=== PATIENT | male | born 1955 | race Caucasian/White ===

== ENCOUNTER 2016-10-14 13:21 | Emergency (ER) | payer OTHER ==
[~2016-10-14] VITALS: Ht 167.6 cm; Wt 94.0 kg
[2016-10-14 13:25] VITALS: Ht 167.6 cm; Wt 94.0 kg
--- NOTE | 2016-10-14 14:00 | RADRPT ---
PROCEDURE: CT Brain without contrast. CLINICAL INDICATION: Altered Mental Status TECHNIQUE: A CT of the brain was performed on a [employer] [facility] 64-slice CT scanner utilizing axial imaging from the skull base through the vertex without IV contrast. Multiplanar reformatted images were made. Images were reviewed on a PACS workstation. The CTDIvol is 41.4 mGy and the DLP is 720 mGycm. COMPARISON: None FINDINGS: There is no intracranial hemorrhage, mass effect, or midline shift. No extra-axial fluid collection is seen. The ventricles and sulci are normal in size and configuration. The density of the brain is normal, and the mott white matter differentiation appears well-preserved. The visualized paranasal sinuses and osseous structures are grossly unremarkable. IMPRESSION: 1. No evidence of acute intracranial pathology. 2. The brain is normal in appearance. Physician Ashish Date Time Electronically viewed and signed by Physician Ashish on 10/14/2016 13:59 ML/
[2016-10-14 14:25] LABS: ADD SCAN DIFF NO
[2016-10-14 14:33] LABS: BASOPHILS % 0.2 % (0.0-2.0); EOSINOPHILS % 0.2 % (0.0-7.0); HEMATOCRIT 45.6 % (42.0-52.0); LYMPHOCYTES # 0.8 10^3/ul (0.8-2.9); LYMPHOCYTES % 6.5 % (15.0-51.0); MEAN CORPUSCULAR HEMOGLOBIN 29.6 pg (29.0-33.0); MEAN CORPUSCULAR HGB CONC 32.9 g/dl (32.0-37.0); MEAN CORPUSCULAR VOLUME 89.9 fl (82.0-101.0); MEAN PLATELET VOLUME 9.2 fl (7.4-10.4); MONOCYTE # 0.7 10^3/ul (0.3-0.9); MONOCYTES % 5.7 % (0.0-11.0); NEUTROPHILS % 87.2 % (39.0-77.0); PLATELET COUNT 258 10^3/UL (140-415); RED BLOOD COUNT 5.07 10^6/ul (4.70-6.10); RED CELL DISTRIBUTION WIDTH 13.7 % (11.5-14.5); WHITE BLOOD COUNT 12.6 10^3/ul (4.8-10.8)
[2016-10-14 14:43] LABS: ADD UMIC NO; URINE BILIRUBIN (Dip) NEGATIVE (NEGATIVE); URINE BLOOD (Dip) NEGATIVE (NEGATIVE); URINE COLOR LT. YELLOW (YELLOW); URINE GLUCOSE (Dip) NEGATIVE (NEGATIVE); URINE KETONES (Dip) NEGATIVE (NEGATIVE); URINE LEUKOCYTE ESTERASE (Dip) NEGATIVE (NEGATIVE); URINE NITRITE (Dip) NEGATIVE (NEGATIVE); URINE TOTAL PROTEIN (Dip) NEGATIVE (NEGATIVE); URINE UROBILINOGEN (Dip) 0.2 E.U./dL (0.1-1.0)
[2016-10-14 14:48] LABS: CHLORIDE 104 mmol/L (97-110); POTASSIUM 3.5 mmol/L (3.5-5.1); SODIUM 142 mmol/L (135-144)
[2016-10-14 14:50] LABS: ANION GAP 16 (8-16); BILIRUBIN,INDIRECT 0.3 mg/dl (0-1.1); BILIRUBIN,TOTAL 0.3 mg/dl (0.2-1.3); CARBON DIOXIDE 26 mmol/L (21-31); CREATININE 0.91 mg/dl (0.61-1.24)
[2016-10-14 14:51] LABS: ALANINE AMINOTRANSFERASE 35 IU/L (13-69); ALBUMIN/GLOBULIN RATIO 1.14; ALKALINE PHOSPHATASE 89 IU/L (42-121); ASPARTATE AMINO TRANSFERASE 17 IU/L (15-46); BLOOD UREA NITROGEN 28 mg/dl (7-20); CALCIUM 9.2 mg/dl (8.4-10.2); GLUCOSE 102 mg/dl (70-220); SALICYLATE < 1.0 mg/dl (5.0-30.0); TOTAL PROTEIN 7.5 g/dl (6.1-8.1)
[2016-10-14 14:52] LABS: ACETAMINOPHEN < 10.0 ug/ml (10.0-30.0); ETHANOL < 10.0 mg/dl
[2016-10-14 14:57] LABS: BENZODIAZEPINES Negative (NEGATIVE)
--- NOTE | 2016-10-14 15:00 | ERD ---
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 The patient took his blood pressure medicines this morning and then says "I forgot everything". He said that it happened 30 minutes ago. 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 Upon review of old medical records this is the patient's first visit to the emergency department. He feels like he is back to his normal at this time. ROS All systems reviewed and are negative except as per history of present illness. Medications Home Meds Reported Medications Amiloride/HCTZ (Moduretic) 5-50 Mg Tab, 1 TAB PO DAILY, TAB PT GETS DRUG FROM [facility] 10/14/16 Metoprolol Tartrate* (Lopressor*) 25 Mg Tab, 12.5 MG PO BID, #60 TAB 10/14/16 Tamsulosin Hcl* (Tamsulosin Hcl*) 0.4 Mg Cap.er.24h, 0.4 MG PO HS, CAP 10/14/16 Finasteride* (Finasteride*) 5 Mg Tablet, 5 MG PO DAILY, TAB 10/14/16 Apixaban* (Eliquis*) 5 Mg Tablet, 5 MG PO BID, TAB 10/14/16 Amlodipine Besylate* (Norvasc*) 5 Mg Tablet, 5 MG PO DAILY, TAB 10/14/16 Lisinopril* (Lisinopril*) 40 Mg Tablet, 40 MG PO DAILY, #30 TAB 10/14/16 Allergies Allergies: Coded Allergies: No Known Allergy (Unverified , 10/14/16) PMhx/Soc Positive for coronary disease and hypertension FmHx Family History: diabetes Physical Exam Vitals Vital Signs Date Time Temp Pulse Resp B/P Pulse Ox O2 Delivery O2 Flow Rate FiO2 10/14/16 15:06 88 16 144/96 100 Room Air 10/14/16 13:25 97.7 90 18 161/91 97 Physical Exam Const: No acute distress Head: Atraumatic Eyes: Normal Conjunctiva ENT: Normal External Ears, Nose and Mouth. Neck: Full range of motion..~ No meningismus. Resp: Clear to auscultation bilaterally Cardio: Regular rate and rhythm, no murmurs Abd: Soft, non tender, non distended. Normal bowel sounds Skin: No petechiae or rashes Back: No midline or flank tenderness Ext: No cyanosis, or edema Neur: Awake and alert, no slurred speech, strength is 5 out of 5 in all 4 extremities, gait is normal Psych: Normal Mood and Affect Result Diagram: 10/14/16 1420 10/14/16 1420 Results 24 hrs Laboratory Tests Test 10/14/16 14:20 White Blood Count 12.610^3/ul Red Blood Count 5.0710^6/ul Hemoglobin 15.0g/dl Hematocrit 45.6% Mean Corpuscular Volume 89.9fl Mean Corpuscular Hemoglobin 29.6pg Mean Corpuscular Hemoglobin Concent 32.9g/dl Red Cell Distribution Width 13.7% Platelet Count 02536^3/UL Mean Platelet Volume 9.2fl Neutrophils % 87.2% Lymphocytes % 6.5% Monocytes % 5.7% Eosinophils % 0.2% Basophils % 0.2% Nucleated Red Blood Cells % 0.0/100WBC Neutrophils # 11.010^3/ul Lymphocytes # 0.810^3/ul Monocytes # 0.710^3/ul Eosinophils # 0.010^3/ul Basophils # 0.010^3/ul Nucleated Red Blood Cells # 0.010^3/ul Urine Color LT. YELLOW Urine Clarity CLEAR Urine pH 5.5 Urine Specific [place] 1.025 Urine Ketones NEGATIVE Urine Nitrite NEGATIVE Urine Bilirubin NEGATIVE Urine Urobilinogen 0.2 E.U./dL Urine Leukocyte Esterase NEGATIVE Urine Hemoglobin NEGATIVE Urine Glucose NEGATIVE% Urine Total Protein NEGATIVE Sodium Level 142mmol/L Potassium Level 3.5mmol/L Chloride Level 104mmol/L Carbon Dioxide Level 26mmol/L Anion Gap 16 Blood Urea Nitrogen 28mg/dl Creatinine 0.91mg/dl Glucose Level 102mg/dl Calcium Level 9.2mg/dl Total Bilirubin 0.3mg/dl Direct Bilirubin 0.00mg/dl Indirect Bilirubin 0.3mg/dl Aspartate Amino Transf (AST/SGOT) 17IU/L Alanine Aminotransferase (ALT/SGPT) 35IU/L Alkaline Phosphatase 89IU/L Total Protein 7.5g/dl Albumin 4.0g/dl Globulin 3.50g/dl Albumin/Globulin Ratio 1.14 Salicylates Level < 1.0mg/dl Urine Opiates Screen Negative Acetaminophen Level < 10.0ug/ml Urine Barbiturates Negative Urine Amphetamines Screen Negative Urine Benzodiazepines Screen Negative Urine Cocaine Screen Negative Urine Cannabinoids Negative Ethyl Alcohol Level < 10.0mg/dl Procedures/MDM EKG read by me: Rate/Rhythm: Regular rate and rhythm at a rate of 89 Intervals: Normal Impression: No evidence of ischemia or arrhythmia CT brain negative per radiology. Patient is a 61-year-old male who presents with a temporary altered level of consciousness. Laboratory studies were normal. CT scan of the brain was negative. The patient is awake alert and oriented 3. At this point I do not believe the patient requires further workup or admission to the hospital this time. It is possible that he had a temporary fugue versus TIA. At this point however I doubt stroke or serious intracranial mass or other electrolyte abnormality. There is no sign of drug abuse. The patient will need to follow- up with his primary doctor within 24-48 hours. He can return sooner for any worsening symptoms. He was given copies of laboratory studies and imaging study results prior to discharge. Departure Diagnosis: Primary Impression: Altered level of consciousness Condition: Fair Patient Instructions: Altered Loc Referrals: Your doctor Additional Instructions: Call your primary care doctor TOMORROW for an appointment during the next 1-2 days.See the doctor sooner or return here if your condition worsens before your appointment time. LINDSEY FU MD October 14, 2016 15:00
[2016-10-14] MEDS ORDERED: LISI40TA9 PO (15:02)
[2016-10-14] MEDS ORDERED: AMLO5TAB4 PO (15:02)
[2016-10-14] MEDS ORDERED: APIX5TAB PO (15:03)
[2016-10-14] MEDS ORDERED: TAMS0.4C2 PO (15:03)
[2016-10-14] MEDS ORDERED: FINA5TAB4 PO (15:03)
[2016-10-14] MEDS ORDERED: METO-448 PO (15:04)
[2016-10-14 15:05] LABS: BARBITURATES Negative (NEGATIVE); CANNABINOIDS Negative (NEGATIVE); COCAINE Negative (NEGATIVE); OPIATES Negative (NEGATIVE)
[2016-10-14 15:06] VITALS: BP 144/96; PULSE 88; RESP 16
[2016-10-14] MEDS ORDERED: [UNRECOGNIZED DRUG - OTHER] PO (15:06)
== END 2016-10-14 15:10 | disposition home or self-care (01) ==
LOC: E/R 13:21
DX: R40.4 Transient alteration of awareness (principal); I10 Essential (primary) hypertension; I25.10 Atherosclerotic heart disease of native coronary artery without angina pectoris
CPT/HCPCS: 36415; 70450; 80053; 80306; 80307; 81003; 85025; 93005